=== PATIENT | female | born 1980 | race Caucasian/White ===

== ENCOUNTER → 2020-08-30 09:24 | Outpatient (CLI) | payer OTHER | END | disposition home or self-care (01) | LOC: PPH VACUNA 09:24 | DX: Z23 Encounter for immunization (principal) ==

== ENCOUNTER → 2021-08-31 | Day surgery (SDC) | payer OTHER ==
[~2021-08-31] VITALS: Ht 162.6 cm; Wt 99.8 kg
[~2021-08-31] MED LIST: LEVOXYL50 MCG
--- NOTE | 2021-08-31 14:01 | NUR ---
PTE ALERTA,ESTABLE Y ORIENTADA.SE EDUCA SOBRE EL TRATAMIENTO QUE SE LE REALIZARA EN EL HOSPITAL Y ESTA REFIERE ENTENDER.SE LE JOSE ENRIQUE MUESTRAS DE KIMBER[facility] DALE ORDEN MEDICA
== END | disposition home or self-care (01) ==
LOC: ER 11:08 → CIR.AMB 11:17 → ER 11:17 → CIR.AMB 11:17 → SEC-K 16:06 → CIR.AMB 16:06 → ER 17:30 → SEC-K 17:30 → OB/GYN 17:30 → SEC-K 17:43 → EDSTATUS 19:00 → OB/GYN 20:11 → SEC-K 23:05
PROVIDERS: ATTEND Emergency Medicine Hospice and Palliative Medicine
DX: O03.4 Incomplete spontaneous abortion without complication (principal); Z88.0 Allergy status to penicillin; Z20.822 Contact with and (suspected) exposure to COVID-19